=== PATIENT | male | born 1935 | race Caucasian/White ===

== ENCOUNTER 2020-10-24 14:04 | Inpatient (IN) | payer MEDICARE, OTHER, SELFPAY ==
--- NOTE | ~2020-10-24 | XR_ITS ---
EXAMINATION: XR chest 1V portable INDICATION: Hypertension and weakness TECHNIQUE: Portable AP chest at 1844 hours COMPARISON: None available FINDINGS: The lungs are free of acute opacities. There is no pleural effusion or pneumothorax. The ca rdiomediastinal silhouette is normal. IMPRESSION: 1. No acute cardiopulmonary abnormality. Reviewed, dictated and finalized at location A.
--- NOTE | ~2020-10-24 | XR_ITS ---
EXAMINATION: XR barium swallow modified DATE: 10/28/2020 14:55 INDICATION: Cough, possible aspiration pneumonia TECHNIQUE: Modified barium esophagram was attempted by myself to administered fluoroscopy, in conjun ction with speech pathologist. A single fluoroscopic spot image was recorded. The DAP for this proced ure was 1.606 Gycm2. Fluoroscopy exposure time was 2.0 minutes. FINDINGS: Patient was extremely somnolent. The examination was terminated after one attempt at [facility] due to patient's somnolence. IMPRESSION: Incomplete modified barium swallow due to patient's somnolence. Reviewed, dictated and finalized at location A.
--- NOTE | ~2020-10-24 | CT_ITS ---
EXAMINATION: CT brain wo con EXAM DATE: 10/24/2020 16:06 INDICATION: Gait instability, states he normally walk today could not. History of dementia. TECHNIQUE: Spiral CT of the head was performed without contrast. Axial, coronal and sagittal images were reviewed. The dose-length product (DLP) for this examination was 605.33 mGy-cm. The exposure w as tailored according to patient size, and iterative reconstruction (ASIR) was used as additional dos e reduction technique. There is no prior study for comparison. FINDINGS: There is no acute intraparenchymal hemorrhage. No evidence of intraparenchymal brain mass lesion. No evidence of acute infarction. Please note that initial head CT has limited sensitivity f or small or acute infarctions. There is mild periventricular and subcortical hypodensity, nonspecific but probably related to small vessel ischemic disease. There is moderate prominence of the sulci a nd ventricles related to cerebral atrophy. There is intracranial carotid arteriosclerosis. There a re no extra-axial collections. There is no mass effect or midline shift. Patient has had bilateral ocular lens surgery. Soft tissue is unremarkable. Completely opacified left frontal sinus and anter ior ethmoids. IMPRESSION: 1. No acute intracranial findings. 2. Chronic age related findings. 3. Completely opacified left frontal and ethmoid sinuses. Reviewed, dictated and finalized at location B.
--- NOTE | ~2020-10-24 | CT_ITS ---
EXAMINATION: CT LE LT wo con DATE: 10/26/2020 15:04 INDICATION: Left foot and ankle pain and swelling. Nonweightbearing. TECHNIQUE: High resolution computed tomography (CT) of the left foot and ankle was performed without intravenous contrast. Additional sagittal and coronal reconstructions were performed. Automated expos ure control and iterative reconstruction technique were employed. The dose-length product was 507.88 mGy-cm. COMPARISON: None FINDINGS: Bone alignment is normal. No fracture. Is mild polyarticular osteoarthritis involving the left ankle and the majority of the joints in the foot. No ankle joint effusion. There were numerous dystrophic c alcifications along multiple tendons and ligaments including the deltoid ligament, the calcaneal fibu lar, anterior and posterior talofibular and anterior and posterior inferior tibiofibular ligaments an d along the peroneus longus and brevis tendons, the tibialis posterior tendon as well as along the ce ntral component of the plantar aponeurosis. There are small cortical erosions at the deltoid ligament origin at the medial malleolus and at the calcaneal and cuboid footplates of the bifurcate ligament. Additional small lucent lesions seen at the talar side of the mid facet of the subtalar joint, at th e base of the fifth metatarsal and at the head of the first metatarsal which could represent addition al erosions or small degenerative subchondral cysts. There is soft tissue swelling with subcutaneous edema about the distal lower leg and ankle as well as extending over the dorsum of the foot. There is also some soft tissue along with subcutaneous edema at the heel plantar fat pad. No left ankle joint effusion or other abnormal fluid collections. IMPRESSION: 1. Dystrophic calcifications along multiple ligaments and tendons at the left ankle and hindfoot luiz g with small erosions at at the sites of ligamentous insertion at the medial malleolus, anterior proc ess of the calcaneus and adjacent cuboid. This pattern of findings is highly suspicious for gout or o ther crystal deposition disease. 2. 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 Reviewed, dictated and finalized at location A. IMPRESSION: 1. Dystrophic calcifications along multiple ligaments and tendons at the left a nkle and hindfoot along with small erosions at at the sites of ligamentous inse rtion at the medial malleolus, anterior process of the calcaneus and adjacent c uboid. This pattern of findings is highly suspicious for gout or other crystal deposition disease. 2. 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
--- NOTE | ~2020-10-24 | XR_ITS ---
XR ankle LT 2V 10/25/2020 11:29 Indication: Left ankle pain Procedure: 4 views left ankle Comparison: No prior studies for comparison. Findings: No fracture, subluxation or dislocation. Ankle mortise intact. There are loose bodies dista l to the medial malleolus, likely related to degenerative change or remote trauma. Small degenerative calcaneal enthesophytes. Impression: 1: No acute fracture. Reviewed, dictated and finalized at location A. Impression: 1: No acute fracture.
--- NOTE | ~2020-10-24 | XR_ITS ---
EXAMINATION: XR chest 2V DATE: 10/28/2020 14:55 INDICATION: Cough, possible aspiration TECHNIQUE: AP and lateral views of the chest are obtained. COMPARISON: 10/24/2020 FINDINGS: There are small pleural effusions. Airspace opacities are present in the lung bases. There is no pneumothorax. The cardiomediastinal silhouette is normal. There is severe thoracic spondylosis. IMPRESSION: 1. Small pleural effusions. 2. Bibasilar airspace opacities, consistent with atelectasis versus pneumonia. Reviewed, dictated and finalized at location A.
[2020-10-24 14:30] VITALS: BP 121/57; O2SAT 95
[2020-10-24 14:45] VITALS: BP 97/45; PULSE 55; RESP 18; TEMP 36.6; O2SAT 96
[2020-10-24 15:00] VITALS: BP 125/65; O2SAT 95
--- NOTE | 2020-10-24 15:49 | ECG_ITS ---
Measurements Intervals [place] Rate: 55 P: [place]: 0 QRS: -47 QRSD: 94 T: 15 QT: 371 QTc: 355 Interpretive Statements SINUS OR ECTOPIC ATRIAL BRADYCARDIA LEFT ANTERIOR FASCICULAR BLOCK BORDERLINE T WAVE ABNORMALITY- ANTEROLAT/INF LEADS BASELINE ARTIFACT- I, II, III, AVR, AVL, AVF, V1-V2 BORDERLINE ECG Electronically Signed On 10-24-2020 17:03:14 CDT by Yohsi Meraz D.O.
--- NOTE | 2020-10-24 15:53 | ED.GENADULT ---
HPI - General Adult General Chief complaint: Extremity Injury, Lower Stated complaint: L ANKLE ISSUES Time Seen by Provider: 10/24/20 15:19 Source: patient History of Present Illness HPI narrative: Patient is a 85 y/o male brought in for evaluation of weakness and difficulty with walking. Daughter states that patient was shuffling more than usual since yesterday. He was at a memory care center today and he was not able to stand up and walk around noon today. They thought he may have had some difficulty with his left leg. He is usually able to walk without assistance. Patient is poor historian and does not know why he is here. Related Data Home Medications Medication Instructions Recorded Confirmed aspirin [Adult Aspirin EC Low 81 mg PO DAILY 10/24/20 Strength] atorvastatin 40 mg PO DAILY 10/24/20 finasteride 5 mg PO DAILY 10/24/20 linaclotide [Linzess] 290 mcg PO DAILY 10/24/20 metformin 1,000 mg PO BID 10/24/20 metoprolol tartrate 12.5 mg PO DAILY 10/24/20 mirtazapine 7.5 mg PO HS 10/24/20 pantoprazole [Protonix] 40 mg PO QAM 10/24/20 rivaroxaban [Xarelto] 20 mg PO DAILY 10/24/20 thiamine HCl (vitamin B1) 100 mg PO DAILY 10/24/20 topiramate 100 mg PO BID 10/24/20 torsemide 20 mg PO QAM 10/24/20 trazodone 25 mg PO HS 10/24/20 valsartan [Diovan] 80 mg PO DAILY 10/24/20 Allergies Allergy/AdvReac Type Severity Reaction Status Date / Time levetiracetam [From Keppra] Allergy Unknown Verified 10/24/20 15:08 lorazepam [From Ativan] Allergy Unknown Verified 10/24/20 15:08 Penicillins Allergy Unknown Verified 10/24/20 15:08 Sulfa (Sulfonamide Allergy Unknown Verified 10/24/20 15:08 Antibiotics) Review of Systems Review of Systems: ROS unobtainable: Yes unobtainable due to mental status Exam Const: General: no acute distress and well developed Orientation/consciousness: oriented to person and confusion HENMT: Head: normocephalic Ears: external ears normal General nose exam: Normal external nose present Eyes: General: appearance normal, both eyes and all related structures Conjunctivae: conjunctivae normal Neck: Neck: normal visual inspection and full ROM Chest: Chest palpation & inspection: normal inspection of the chest and no tenderness Resp: Effort & Inspection: normal respiratory effort Auscultation: clear to auscultation bilaterally Cardio: Rate: regular rate Rhythm: regular rhythm GI: GI Palp: No abdominal tenderness and Yes Soft to palpation Skin: General skin exam: normal color and turgor normal Wounds: wounds noted (chronically appearing wound over right medial malleolus) Neuro: General: oriented to person and confusion Cognition (Neuro): abnormal cognition Speech: normal speech Motor exam (neuro): 5/5 motor strength present throughout Sensory Exam: normal sensation Extrem: General: normal to inspection, full ROM and edema bilateral Psych: Appearance: grossly normal Mental Status: mental status grossly normal Affect: normal affect Course Consultations Consultation #1: Discussed with Dr. Schneider, who agrees to admit. Date: 10/24/20 Time: 18:41 Vital Signs Vital signs: Vital Signs Blood Pressure 121/57 L 10/24/20 14:30 Pulse Oximetry 95 10/24/20 14:30 Temperature 36.6 C 10/24/20 14:45 Pulse Rate 55 L 10/24/20 14:45 Respiratory Rate 18 10/24/20 14:45 Blood Pressure 125/65 10/24/20 15:00 Pulse Oximetry 95 10/24/20 15:00 Medical Decision Making Vital Signs Vital Signs: Vital Signs Blood Pressure 121/57 L 10/24/20 14:30 Pulse Oximetry 95 10/24/20 14:30 Temperature 36.6 C 10/24/20 14:45 Pulse Rate 55 L 10/24/20 14:45 Respiratory Rate 18 10/24/20 14:45 Blood Pressure 125/65 10/24/20 15:00 Pulse Oximetry 95 10/24/20 15:00 Lab Data Result diagrams: 10/24/20 16:39 10/24/20 16:39 Labs: Lab Results 10/24/20 10/24/20 10/24/20 Range/Units 16:36 16:39 16:39 WBC 7.7 (4.5-10.
[2020-10-24] MEDS: SODIUM CHLORIDE 0.9% IV 1,000 ML 999 ML IV CONT (16:44)
[2020-10-24 16:53] LABS: Basophils Absolute Auto 0.1 K/mm3 (0.0-0.1); Basophils Percent Auto 0.7 % (0.2-1.2); Eosinophils Absolute Auto 0.5 K/mm3 (0-0.3); Eosinophils Percent Auto 6.1 % (0-4.4); Hematocrit 35.7 % (42.0-52.0); Immature Granulocyte Absolute 0.04 K/mm3 (0.00-0.031); Immature Granulocyte Percent A 0.5 % (0-0.5); Lymphocytes Absolute Auto 0.95 K/mm3 (0.9-3.2); Lymphocytes Percent Auto 12.4 % (18.3-44.2); Mean Corpuscular HGB Conc 30.8 g/dl (32-36); Mean Corpuscular Hemoglobin 28.6 pg (26-34); Mean Platelet Volume 9.8 fl (7.4-10.4); Monocytes Absolute Auto 0.8 K/mm3 (0.1-0.6); Monocytes Percent Auto 9.9 % (2.6-8.5); Neutrophils Absolute Auto 5.4 K/mm3 (1.3-6.7); Neutrophils Percent Auto 70.4 % (45.5-73.1); Platelet Count Result 212 k/mm3 (150-375); Red Blood Count 3.84 M/mm3 (4.6-6.20); Red Cell Distribution Width 14.8 % (11.5-14.5); White Blood Count 7.7 K/mm3 (4.5-10.0)
[2020-10-24 16:56] LABS: Add Urine Microscopic? YES; Appearance Urine Clear (Clear); Bilirubin Urine Negative (Negative); Blood Urine Negative (Negative); Color Urine Yellow (Yellow); Glucose Urine UA Negative (Negative); Ketones Urine Negative (Negative); Leukocyte Esterase Ur Negative LEU/UL (Negative); Mucus Urine Rare /lpf; Nitrate Urine Negative (Negative); Protein Urine 1+ mg/dL (Negative); RBC Urine 0-2 /hpf (0-2); Specific Grav Ur 1.021 (1.001-1.035); WBC Urine 0-3 /hpf
[2020-10-24 17:20] LABS: Carbon Dioxide 21 mmol/L (22-30); Estimated Glomerular Filt Rate 41; Glucose 141 mg/dL (65-110)
[2020-10-24 17:26] LABS: Anion Gap 8 mmol/L (8-16); Blood Urea Nitrogen 25 mg/dL (9-20); Calcium 8.8 mg/dL (8.4-10.2); Chloride 117 mmol/L (98-107); Potassium 4.3 mmol/L (3.4-5.0); Sodium 146 mmol/L (137-145)
[2020-10-24 20:09] LABS: Ammonia < 9 umol/L (9-30)
[2020-10-24 20:45] VITALS: BP 125/65; PULSE 62; RESP 20; O2SAT 98
[2020-10-24 21:00] VITALS: BP 153/59; PULSE 71; RESP 18; TEMP 36.8; O2SAT 98; BMI 30.2
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
[2020-10-24] MEDS: HALOPERIDOL LACTATE 5 MG/ML VIAL IM (23:21)
[2020-10-24 23:27] VITALS: PULSE 97
[2020-10-25] VITALS: PULSE 96
--- NOTE | 2020-10-25 00:14 | PM.IMHP ---
H&P: HPI History of Present Illness Date/Time: 10/25/20 00:14 Chief Complaint: Altered mental status Narrative: THIS IS AN 85-YEAR-OLD MALE WITH PAST MEDICAL HISTORY SIGNIFICANT FOR DEMENTIA, TYPE 2 DIABETES MELLITUS, ATRIAL FIBRILLATION, BENIGN PROSTATIC HYPERPLASIA, GERD. MOST OF THE HISTORY HAS BEEN OBTAINED FROM DAUGHTER WHO IS AT BEDSIDE IN THE EMERGENCY ROOM PATIENT JUST RECENTLY STARTED LIVING IN A [facility]ORY [facility]ARE UNIT SHE WAS BROUGHT TO THE EMERGENCY ROOM DUE TO STAFF CONCERNS WITH THE PATIENT ALTERED MENTAL STATUS HE HAS NOT BEEN HIS USUAL HAS NOT BEEN PARTICIPATING IN ANY ACTIVITIES AND HAS BEEN CONFUSED. DAUGHTER RESTART STATES THAT HE WAS RECENTLY STARTED ON MIRTAZAPINE AND THAT COULD HAVE CONTRIBUTED TO IT. PATIENT IS UNABLE TO PROVIDE ANY HISTORY DUE TO HIS UNDERLYING DEMENTIA HE DENIES ANY DISCOMFORT AT THE TIME OF MY VISIT. PRELIMINARY WORKUP WAS SIGNIFICANT FOR SLIGHT ELEVATION OF CREATININE. CHEST X-RAY DID NOT SHOW ANY ACUTE CARDIOPULMONARY FINDINGS. Review of Systems Review of Systems: PATIENT WAS BROACHED AFTER STAFF CONCERNS FROM MEMORY CARE UNIT ARE ASSISTED ROS unobtainable: Yes unobtainable due to medical condition Meds Home Medications and Allergies Home Medications Medication Instructions Recorded Confirmed Type aspirin [Adult Aspirin EC Low 81 mg PO DAILY 10/24/20 10/25/20 History Strength] atorvastatin 40 mg PO DAILY 10/24/20 10/25/20 History finasteride 5 mg PO DAILY 10/24/20 10/25/20 History linaclotide [Linzess] 290 mcg PO DAILY 10/24/20 10/25/20 History metformin 1,000 mg PO BID 10/24/20 10/25/20 History metoprolol tartrate 12.5 mg PO DAILY 10/24/20 10/25/20 History mirtazapine 7.5 mg PO HS 10/24/20 10/25/20 History pantoprazole [Protonix] 40 mg PO QAM 10/24/20 10/25/20 History rivaroxaban [Xarelto] 20 mg PO DAILY 10/24/20 10/25/20 History thiamine HCl (vitamin B1) 100 mg PO DAILY 10/24/20 10/25/20 History topiramate 100 mg PO BID 10/24/20 10/25/20 History torsemide 20 mg PO QAM 10/24/20 10/25/20 History trazodone 25 mg PO HS 07/29/21 07/30/21 History valsartan [Diovan] 80 mg PO DAILY 10/24/20 10/25/20 History Allergies Allergy/AdvReac Type Severity Reaction Status Date / Time levetiracetam [From Keppra] Allergy Unknown Verified 10/24/20 23:06 lorazepam [From Ativan] Allergy Unknown Verified 10/24/20 23:06 Penicillins Allergy Unknown Verified 10/24/20 23:06 Sulfa (Sulfonamide Allergy Unknown Verified 10/24/20 23:06 Antibiotics) Vital Signs Vital Signs - 24 hr 10/24/20 14:30 10/24/20 14:45 10/24/20 15:00 Temperature 97.8 F Pulse Rate 55 L Respiratory Rate 18 Blood Pressure 121/57 L 97/45 L 125/65 Pulse Oximetry 95 96 95 10/24/20 20:45 10/24/20 21:00 Temperature 98.3 F Pulse Rate 62 71 Respiratory Rate 20 18 Blood Pressure 125/65 153/59 H Pulse Oximetry 98 98 Exam Narrative: [facility] Const: General: comfortable, no acute distress, well developed, alert and awake Nutritional Appearance: average body habitus Orientation/consciousness: oriented to person HENMT: Head: normal to inspection, normocephalic and atraumatic Ears: hearing grossly normal bilaterally General nose exam: Normal external nose present Face and sinus: normal facial exam Eyes: General: appearance normal, both eyes and all related structures Alignment and Position: alignment normal Pupils: Equal, round and reactive pupils present EOM: EOMs intact bilaterally Neck: Neck: full ROM, no lymphadenopathy and no JVD Thyroid: thyroid normal Lymphatic: no lymphadenopathy noted Resp: Effort & Inspection: normal respiratory effort and able to speak in complete sentences Auscultation: clear to auscultation bilaterally Cardio: Jugular venous distension: no JVD Rate: regular rate Rhythm: regular rhythm Heart sounds: S1 normal heart sound present and S2 normal heart sound present GI: Inspection: normal to inspection GI Palp: Yes Soft to palpation, No Tenderness to pa
[2020-10-25] MEDS: MORPHINE SULFATE (*CRX) 2 MG/ML INJ 1 MG IV PUSH (00:56)
[2020-10-25] MEDS: traZODone HCL 25 MG TABLET PO ×2 (01:38→20:28)
[2020-10-25] MEDS: OLANZapine 10 MG INJ VIAL IM (01:48)
--- NOTE | 2020-10-25 02:30 | ADMGEN ---
This patient, Ghulam Millan, was admitted to Medical Room [facility] at 2100. Patient/family oriented to hospital policies and general routines including ID bracelet, bed and alarms, visiting hours, pain management, procedures, bathroom and other care routines, personal items, smoking policy, room service/diet, and visiting hours. Information on how to activate the Rapid Response Team has been discussed. Patient/Family are encouraged to report perceived risks to care and to ask questions if they do not understand what they are told or what they should do.
[2020-10-25] MEDS: CLINDAMYCIN 300 MG in DEXTROSE 5% IN WATER 50 ML 104 MG IVPB (03:17)
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
[2020-10-25 06:00] VITALS: BP 138/76; PULSE 97; RESP 18; TEMP 37.1; O2SAT 90
[2020-10-25] MEDS: CLINDAMYCIN 300 MG in DEXTROSE 5% IN WATER 50 ML 50 MG IVPB (09:08)
[2020-10-25 09:10] VITALS: PULSE 84
[2020-10-25] MEDS: ASPIRIN 81 MG ENTERIC TABLET PO (09:10)
[2020-10-25] MEDS: FINASTERIDE 5 MG TABLET PO (09:10)
[2020-10-25] MEDS: METOPROLOL TARTRATE 12.5 MG TABLET PO ×2 (09:10→20:28)
[2020-10-25] MEDS: ATORVASTATIN 40 MG TABLET PO (09:10)
[2020-10-25] MEDS: THIAMINE HCL 100 MG TABLET PO (09:11)
[2020-10-25] MEDS: TOPIRAMATE 100 MG TABLET PO ×2 (09:12→17:31)
[2020-10-25] MEDS: PANTOPRAZOLE 40 MG TABLET PO (09:12)
[2020-10-25 10:36] VITALS: BMI 30.2
[2020-10-25] MEDS: HALOPERIDOL LACTATE 5 MG/ML VIAL IM ×3 (11:47→22:44)
--- NOTE | 2020-10-25 12:10 | PCNSR ---
On 10/25/20, the student, Renetta Moses, provided care and completed [facility] documentation on this patient. I have reviewed the student's documentation and agree with the findings.
[2020-10-25 13:00] VITALS: BP 129/66; PULSE 56; RESP 16; TEMP 36.7; O2SAT 100
[2020-10-25] MEDS: SILVERGEL (ELTA) 45 ML 1 APPLIC TOPICAL (14:58)
[2020-10-25 16:00] VITALS: BMI 11.0
--- NOTE | 2020-10-25 16:42 | PM.IMPN ---
Progress Note: A&P Assessment and Plan (1) Altered mental status: Code(s): R41.82 - Altered mental status, unspecified Status: Acute Assessment and Plan: The patient's daughter is at bedside and tells me that he was sitting up for lunch at his memory care facility yesterday when suddenly he had a change in his mental status along with generalized weakness. The patient normally is walking around without any issues or concerns. He did have a fall approximately 1 week ago when he was turning too fast wall on a tour of the memory care facility. He did not hit his head or injure himself and he is still able to walk without any issues. But prior to arrival with his mental status change, generalized weakness they were unable to get him up and he was unable to walk so he was sent to the emergency room for further evaluation workup. While in the emergency room the patient's daughter states he was very confused and sundowning with his dementia which she has seen before during his hospitalizations. The daughter did say he was complaining of left ankle pain in the ER, but imaging was not performed. Altered mental status could be from dehydration vs orthostatic hypotension vs medication reaction with mirtazapine causing over sedation and generalized weakness. Will hold Mirtazapine BP much improved with IV fluids in the emergency room patient otherwise very confused and agitated. patient is moving all extremities, and does not have any signs of having any type of stroke at this time. Will not proceed with stroke workup currently. Agitation will need PRN Haldol Will continue neuro checks q.4 hours. (2) Left ankle pain: Code(s): M25.572 - Pain in left ankle and joints of left foot Status: Acute Assessment and Plan: patient reporting left ankle pain to his daughter yesterday. On examination he does have tenderness to palpation of his lateral malleolus and proximal forefoot. x-ray was obtained of left ankle which did not show any acute fracture. He did get up with PT earlier and he did not put any weight on his left ankle. I will get a CT of his foot and ankle to rule out acute fracture. Continue monitoring. Pain meds as needed. Ankle wrap ordered to be applied daily. P.r.n. ice. And continue PT/OT. (3) Left leg cellulitis: Code(s): L03.116 - Cellulitis of left lower limb Status: Acute Assessment and Plan: Do not believe he has cellulitis, it is chronic venous status changes and daughter agrees. (4) VALERIA (acute kidney injury): Code(s): N17.9 - Acute kidney failure, unspecified Status: Acute Assessment and Plan: Will check Cr 1.60/25. Will recheck labs in the morning. (5) Weakness: Code(s): R53.1 - Weakness Status: Acute Assessment and Plan: Could be from dementia, vs medications vs sedation from medications. No acute signs of infection at this time. Continue monitoring; PT/OT. Working on SNF placement. (6) Dementia: Code(s): F03.90 - Unspecified dementia without behavioral disturbance Status: Acute Assessment and Plan: Continue home medications. (7) Gait instability: Code(s): R26.81 - Unsteadiness on feet Status: Acute Time Spent With Patient Time with patient: 25 - 35 minutes Subjective Date/time seen: 10/25/20 16:42 Interval history: Date of Service 10/25/20: The patient is confused and agitated, trying to get out of bed and throw water on me. He denies any pain, trouble breathing, but does report pain to his left ankle/foot. Review of Systems Review of Systems: All systems reviewed & are unremarkabl
[2020-10-25 20:23] VITALS: BP 128/95; PULSE 72; RESP 22; TEMP 36.9; O2SAT 91
[2020-10-25 20:28] VITALS: PULSE 72
[2020-10-26 04:57] LABS: Hematocrit 36.2 % (42.0-52.0); Hemoglobin 11.4 g/dL (14.0-18.0); Mean Corpuscular HGB Conc 31.5 g/dl (32-36); Mean Corpuscular Hemoglobin 28.9 pg (26-34); Mean Corpuscular Volume 91.9 fl (80-100); Mean Platelet Volume 9.9 fl (7.4-10.4); Platelet Count Result 221 k/mm3 (150-375); Red Blood Count 3.94 M/mm3 (4.6-6.20); Red Cell Distribution Width 14.5 % (11.5-14.5); White Blood Count 13.5 K/mm3 (4.5-10.0)
[2020-10-26 05:13] LABS: Anion Gap 13 mmol/L (8-16); Blood Urea Nitrogen 23 mg/dL (9-20); Calcium 8.9 mg/dL (8.4-10.2); Carbon Dioxide 15 mmol/L (22-30); Chloride 116 mmol/L (98-107); Estimated CRCL calculation 38 ml/min; Estimated Glomerular Filt Rate 41; Glucose 143 mg/dL (65-110); Potassium 3.7 mmol/L (3.4-5.0); Sodium 144 mmol/L (137-145)
[2020-10-26 05:22] VITALS: BP 139/65; PULSE 88; RESP 22; TEMP 36.6; O2SAT 92
--- NOTE | 2020-10-26 09:21 | PM.IMPN ---
Progress Note: A&P Assessment and Plan (1) Altered mental status: Code(s): R41.82 - Altered mental status, unspecified Status: Acute Assessment and Plan: Holdd Mirtazapine Still confused No signs stroke,no workup currently PRN Haldol Neuro checks q 4 hr (2) Left ankle pain: Code(s): M25.572 - Pain in left ankle and joints of left foot Status: Acute Assessment and Plan: Pt reporting left ankle pain to his daughter yesterday x-ray was obtained of left ankle which did not show any acute fracture. Unable to bear weight on left ankle with PT yesterdaye CT of his foot and ankle to rule out acute fracture Pain meds as needed. Ankle wrap ordered to be applied daily Ice prn Continue PT/OT (3) Left leg cellulitis: Code(s): L03.116 - Cellulitis of left lower limb Status: Acute Assessment and Plan: Unlikely cellulitis Chronic venous status changes and daughter agrees (4) VALERIA (acute kidney injury): Code(s): N17.9 - Acute kidney failure, unspecified Status: Acute Assessment and Plan: Cr 1.60 today Gentle IVF Repeat Monitor (5) Weakness: Code(s): R53.1 - Weakness Status: Acute Assessment and Plan: Could be from dementia, vs medications vs sedation from medications No acute signs of infection at this time. PT/OT SNF placement at d/c (6) Dementia: Code(s): F03.90 - Unspecified dementia without behavioral disturbance Status: Acute Assessment and Plan: Continue home medications (7) Gait instability: Code(s): R26.81 - Unsteadiness on feet Status: Acute Assessment and Plan: PT/OT CT of left ankle pending Subjective Date/time seen: 10/26/20 09:21 Interval history: Pt seen and evaluated; arousable to voice; confused Review of Systems Review of Systems: ROS unobtainable: Yes unobtainable due to mental status Exam Const: General: no acute distress, alert and awake Orientation/consciousness: patient oriented x3 HENMT: Head: normocephalic and atraumatic Ears: hearing grossly normal bilaterally and external ears normal Face and sinus: face symmetric Mouth: Yes Normal oral and palatal mucosa present Eyes: Pupils: Equal, round and reactive pupils present EOM: EOMs intact bilaterally Neck: Neck: full ROM, trachea midline and no JVD Thyroid: thyroid normal Chest: Chest palpation & inspection: normal inspection of the chest Resp: Effort & Inspection: normal respiratory effort Auscultation: clear to auscultation bilaterally Cardio: Jugular venous distension: no JVD Rate: regular rate Rhythm: regular rhythm Heart sounds: S1 normal heart sound present and S2 normal heart sound present GI: Inspection: normal to inspection GI Palp: Yes Soft to palpation Percussion: Yes normal to percussion Auscultation: normal bowel sounds : General: Yes no CVA tenderness Back/Spine/Pelvis: Back: no CVA tenderness Skin: General skin exam: normal color Rashes: no rashes Neuro: General: oriented to person Objective Data Vital Signs Vital Signs: Vital Signs - 24 hr 10/25/20 13:00 10/25/20 20:23 10/25/20 20:28 Temperature 36.7 C 36.9 C Pulse Rate 56 L 72 72 Respiratory Rate 16 22 H Blood Pressure 129/66 128/95 H Pulse Oximetry 100 91 10/26/20 05:22 Temperature 36.6 C Pulse Rate 88 Respiratory Rate 22 H Blood Pressure 139/65 Pulse Oximetry 92 Intake/Output Intake/Output: Intake & Output 10/23/20 10/24/20 10/25/20 10/26/20 23:59 23:59 23:59 23:59 Intake Total 1000 677 0 Output Total 750 Balance 1000 -73 0 Meds/Results Medications: Active Medica
[2020-10-26 09:41] VITALS: PULSE 84
[2020-10-26] MEDS: METOPROLOL TARTRATE 12.5 MG TABLET PO ×2 (09:41→20:20)
[2020-10-26] MEDS: TOPIRAMATE 100 MG TABLET PO ×2 (09:41→16:53)
[2020-10-26 09:42] VITALS: RESP 20; O2SAT 93
[2020-10-26] MEDS: THIAMINE HCL 100 MG TABLET PO (09:42)
[2020-10-26] MEDS: FINASTERIDE 5 MG TABLET PO (09:42)
[2020-10-26] MEDS: SILVERGEL (ELTA) 45 ML 1 APPLIC TOPICAL (09:42)
[2020-10-26] MEDS: PANTOPRAZOLE 40 MG TABLET PO (09:42)
[2020-10-26] MEDS: ATORVASTATIN 40 MG TABLET PO (09:42)
[2020-10-26 12:00] VITALS: BP 150/69; PULSE 78; RESP 20; TEMP 36.6; O2SAT 96; BMI 11.0
[2020-10-26] MEDS: SODIUM CHLORIDE 0.9% IV 1,000 ML 50 ML IV CONT (12:14)
[2020-10-26] MEDS: ASPIRIN 81 MG ENTERIC TABLET PO (13:21)
[2020-10-26] MEDS: HALOPERIDOL LACTATE 5 MG/ML VIAL IM (18:07)
[2020-10-26 20:20] VITALS: PULSE 88
[2020-10-26] MEDS: traZODone HCL 25 MG TABLET PO (20:20)
[2020-10-26 21:07] VITALS: BP 155/48; PULSE 88; RESP 22; TEMP 36.4; O2SAT 95
[2020-10-27] MEDS: HALOPERIDOL LACTATE 5 MG/ML VIAL IM ×3 (00:25→16:15)
[2020-10-27 04:59] VITALS: BP 141/73; PULSE 85; RESP 20; TEMP 36.4; O2SAT 100
[2020-10-27 05:30] LABS: Basophils Percent Auto 0.3 % (0.2-1.2); Eosinophils Percent Auto 0.2 % (0-4.4); Hematocrit 38.2 % (42.0-52.0); Hemoglobin 11.8 g/dL (14.0-18.0); Immature Granulocyte Absolute 0.07 K/mm3 (0.00-0.031); Immature Granulocyte Percent A 0.5 % (0-0.5); Lymphocytes Absolute Auto 0.59 K/mm3 (0.9-3.2); Lymphocytes Percent Auto 4.3 % (18.3-44.2); Mean Corpuscular HGB Conc 30.9 g/dl (32-36); Mean Corpuscular Hemoglobin 28.9 pg (26-34); Mean Corpuscular Volume 93.6 fl (80-100); Mean Platelet Volume 9.9 fl (7.4-10.4); Monocytes Absolute Auto 1.1 K/mm3 (0.1-0.6); Neutrophils Percent Auto 86.7 % (45.5-73.1); Platelet Count Result 209 k/mm3 (150-375); Red Blood Count 4.08 M/mm3 (4.6-6.20); Red Cell Distribution Width 14.6 % (11.5-14.5); White Blood Count 13.8 K/mm3 (4.5-10.0)
[2020-10-27 05:42] LABS: Anion Gap 14 mmol/L (8-16); Blood Urea Nitrogen 22 mg/dL (9-20); Calcium 9.1 mg/dL (8.4-10.2); Carbon Dioxide 15 mmol/L (22-30); Chloride 117 mmol/L (98-107); Estimated CRCL calculation 43 ml/min; Estimated Glomerular Filt Rate 48; Glucose 136 mg/dL (65-110); Sodium 146 mmol/L (137-145)
[2020-10-27] MEDS: PANTOPRAZOLE 40 MG TABLET PO (09:16)
[2020-10-27] MEDS: ASPIRIN 81 MG ENTERIC TABLET PO (09:16)
[2020-10-27] MEDS: ATORVASTATIN 40 MG TABLET PO (09:16)
[2020-10-27 09:17] VITALS: PULSE 84; RESP 20; O2SAT 98
[2020-10-27] MEDS: METOPROLOL TARTRATE 12.5 MG TABLET PO ×2 (09:17→21:39)
[2020-10-27] MEDS: TOPIRAMATE 100 MG TABLET PO ×2 (09:17→16:17)
[2020-10-27] MEDS: FINASTERIDE 5 MG TABLET PO (09:17)
[2020-10-27] MEDS: THIAMINE HCL 100 MG TABLET PO (09:17)
[2020-10-27] MEDS: SILVERGEL (ELTA) 45 ML 1 APPLIC TOPICAL (09:17)
--- NOTE | 2020-10-27 11:19 | PM.IMPN ---
Progress Note: A&P Assessment and Plan (1) Altered mental status: Code(s): R41.82 - Altered mental status, unspecified Status: Acute Assessment and Plan: Holdd Mirtazapine Still confused No signs stroke,no workup currently PRN Haldol Neuro checks q 4 hr (2) Left ankle pain: Code(s): M25.572 - Pain in left ankle and joints of left foot Status: Acute Assessment and Plan: Pt reporting left ankle pain to his daughter yesterday x-ray was obtained of left ankle which did not show any acute fracture. 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 Ankle wrap ordered to be applied daily Ice prn Continue PT/OT Will start colchicine (3) Left leg cellulitis: Code(s): L03.116 - Cellulitis of left lower limb Status: Acute Assessment and Plan: Unlikely cellulitis Chronic venous status changes and daughter agrees (4) VALERIA (acute kidney injury): Code(s): N17.9 - Acute kidney failure, unspecified Status: Acute Assessment and Plan: Cr 1.60-->1.4 today Gentle IVF Repeat Monitor (5) Weakness: Code(s): R53.1 - Weakness Status: Acute Assessment and Plan: Could be from dementia, vs medications vs sedation from medications No acute signs of infection at this time. PT/OT SNF placement at d/c (6) Dementia: Code(s): F03.90 - Unspecified dementia without behavioral disturbance Status: Acute Assessment and Plan: Continue home medications (7) Gait instability: Code(s): R26.81 - Unsteadiness on feet Status: Acute Assessment and Plan: PT/OT CT of left ankle pending Subjective Date/time seen: 10/27/20 11:19 Interval history: Pt seen and evaluated; arousable to voice; agitated this morning Review of Systems Review of Systems: ROS unobtainable: Yes unobtainable due to mental status Exam Const: General: no acute distress, alert and awake Orientation/consciousness: oriented to person HENMT: Head: normocephalic and atraumatic Ears: hearing grossly normal bilaterally and external ears normal Face and sinus: face symmetric Mouth: Yes Normal oral and palatal mucosa present Eyes: Pupils: Equal, round and reactive pupils present EOM: EOMs intact bilaterally Neck: Neck: full ROM, trachea midline and no JVD Thyroid: thyroid normal Chest: Chest palpation & inspection: normal inspection of the chest Resp: Effort & Inspection: normal respiratory effort Auscultation: clear to auscultation bilaterally Cardio: Jugular venous distension: no JVD Rate: regular rate Rhythm: regular rhythm Heart sounds: S1 normal heart sound present and S2 normal heart sound present GI: Inspection: normal to inspection Auscultation: normal bowel sounds : General: Yes no CVA tenderness Back/Spine/Pelvis: Back: no CVA tenderness Skin: General skin exam: normal color Rashes: no rashes Trauma: abrasion Other: left ankle Neuro: General: oriented to person Cranial nerves: Yes Equal, round and reactive pupils present Objective Data Vital Signs Vital Signs: Vital Signs - 24 hr 10/26/20 12:00 10/26/20 20:20 10/26/20 21:07 Temperature 36.6 C 36.4 C L Pulse Rate 78 88 88 Respiratory Rate 20 22 H Blood Pressure 150/69 H 155/48 H Pulse Oximetry 96 95 10/27/20 04:59 10/27/20 09:17 Temperature 36.4 C Pulse Rate 85 84 Respiratory Rate 20 20 Blood Pressure 141/73 H Pulse Oximetry 100 98 Intake/Output Intake/Output: Intake
[2020-10-27 12:00] VITALS: BP 157/85; PULSE 85; RESP 20; TEMP 36.4; O2SAT 95
[2020-10-27] MEDS: COLCHICINE 0.3 MG TABLET PO (13:24)
[2020-10-27] MEDS: ACETAMINOPHEN 325 MG TABLET 650 MG PO (15:55)
[2020-10-27 20:00] VITALS: PULSE 74; RESP 20; O2SAT 95
[2020-10-27 21:39] VITALS: PULSE 74
[2020-10-27] MEDS: traZODone HCL 25 MG TABLET PO (21:39)
[2020-10-27 22:00] VITALS: BP 156/99; PULSE 100; RESP 16; TEMP 36.4; O2SAT 93
[2020-10-28] MEDS: HALOPERIDOL LACTATE 5 MG/ML VIAL IM (00:26)
[2020-10-28 06:00] VITALS: BP 136/86; PULSE 74; RESP 16; TEMP 36.7; O2SAT 94
[2020-10-28 09:41] VITALS: PULSE 80
[2020-10-28] MEDS: METOPROLOL TARTRATE 12.5 MG TABLET PO ×2 (09:41→20:44)
[2020-10-28] MEDS: SILVERGEL (ELTA) 45 ML 1 APPLIC TOPICAL (09:41)
[2020-10-28] MEDS: ASPIRIN 81 MG ENTERIC TABLET PO (09:41)
[2020-10-28] MEDS: COLCHICINE 0.3 MG TABLET PO (09:41)
[2020-10-28] MEDS: SODIUM BICARBONATE TAB 650 MG TABLET PO (09:41)
[2020-10-28] MEDS: THIAMINE HCL 100 MG TABLET PO (09:41)
[2020-10-28] MEDS: PANTOPRAZOLE 40 MG TABLET PO (09:41)
[2020-10-28] MEDS: FINASTERIDE 5 MG TABLET PO (09:41)
[2020-10-28] MEDS: ATORVASTATIN 40 MG TABLET PO (09:41)
[2020-10-28] MEDS: TOPIRAMATE 100 MG TABLET PO (09:41)
[2020-10-28 11:30] VITALS: BMI 11.0
--- NOTE | 2020-10-28 11:30 | P.PNIM_ITS ---
Progress Note: A&P Assessment and Plan (1) Altered mental status: Code(s): R41.82 - Altered mental status, unspecified Status: Acute Assessment and Plan: Acute change day of presentation. He is reportedly oriented to self still(his baseline) but more confused and drowsy per family report. He is combative. * Initially concerns for sedating effects of medication. Mirtazapine on hold. * Head CT with no acute findings * Likely overly sedated from Haldol, causing daytime drowsiness and nighttime confusion/combativeness. * Will make attempts to limit use of haldol and other sedating medications. He may benefit from scheduled seroquel at bedtime, however will await results of swallow study before making changes * Daughter reports he does not tolerate ativan and has paradoxical effect causing increased agitation (2) Left ankle pain: Code(s): M25.572 - Pain in left ankle and joints of left foot Status: Acute Assessment and Plan: Reported left ankle pain to daughter and was reportedly exquisitely tender on exam. * Daughter notes that he did have a fall and thought perhaps he injured the ankle. X-ray and CT with no evidence of fracture * Ankle CT highly suspicious for gout. continue colchicine. Check uric acid level * supportive care to include Ronak wrap, ice, heat, and analgesics as needed * continue PT/OT (3) VALERIA (acute kidney injury): Code(s): N17.9 - Acute kidney failure, unspecified Status: Acute Assessment and Plan: creatinine 1.6 at presentation. his baseline is unknown * creatinine improved to 1.4 with gentle IV fluid rehydration, suggesting prerenal etiology * repeat BMP today to monitor renal function * consider renal ultrasound if no further improvement * reviewed outside medical records with no recent labs done to establish baseline creatinine (4) Weakness: Code(s): R53.1 - Weakness Status: Acute Assessment and Plan: generalized weakness likely multifactorial related to dementia, sedation from medications, and physical deconditioning * continue PT/OT * check TSH, B12, and folic acid levels * planning for SNF placement (5) Dementia: Code(s): F03.90 - Unspecified dementia without behavioral disturbance Status: Acute Assessment and Plan: typically oriented to self only. * Recently moved in to memory care facility * established with memory progressive care manager and recently started on mirtazapine; currently on hold (6) Dysphagia: Code(s): R13.10 - Dysphagia, unspecified Status: Acute Assessment and Plan: sounds to be ongoing issue. noted to have some difficulty with swallowing liquids and with his pills * Course lung sounds, concerning for aspiration. Will obtain CXR * MBS ordered, will await ST recommendations Subjective Date/time seen: 10/28/20 11:30 Interval history: Date of service: 10/28/2020 Ghulam Millan is an 85-year-old male with a history of dementia, type 2 diabetes mellitus, atrial fibrillation on chronic anticoagulation, BPH, and GERD who is seen in follow-up for altered mental status. He is sleeping during my encounter and no attempts are made to awake the patient given his recent combativeness when awoken. per patient's daughter and patient sitter, he does not like to be touched and often gets agitated when he is moved or needs to be cleaned up. I had a long conversation with his daughter when she was able to provide me a lot of his medical history
--- NOTE | 2020-10-28 11:30 | PM.IMPN ---
Progress Note: A&P Assessment and Plan (1) Altered mental status: Code(s): R41.82 - Altered mental status, unspecified Status: Acute Assessment and Plan: Acute change day of presentation. He is reportedly oriented to self still(his baseline) but more confused and drowsy per family report. He is combative. Initially concerns for sedating effects of medication. Mirtazapine on hold. Head CT with no acute findings Likely overly sedated from Haldol, causing daytime drowsiness and nighttime confusion/combativeness. Will make attempts to limit use of haldol and other sedating medications. He may benefit from scheduled seroquel at bedtime, however will await results of swallow study before making changes Daughter reports he does not tolerate ativan and has paradoxical effect causing increased agitation (2) Left ankle pain: Code(s): M25.572 - Pain in left ankle and joints of left foot Status: Acute Assessment and Plan: Reported left ankle pain to daughter and was reportedly exquisitely tender on exam. Daughter notes that he did have a fall and thought perhaps he injured the ankle. X-ray and CT with no evidence of fracture Ankle CT highly suspicious for gout. continue colchicine. Check uric acid level supportive care to include Ronak wrap, ice, heat, and analgesics as needed continue PT/OT (3) VALERIA (acute kidney injury): Code(s): N17.9 - Acute kidney failure, unspecified Status: Acute Assessment and Plan: creatinine 1.6 at presentation. his baseline is unknown creatinine improved to 1.4 with gentle IV fluid rehydration, suggesting prerenal etiology repeat BMP today to monitor renal function consider renal ultrasound if no further improvement reviewed outside medical records with no recent labs done to establish baseline creatinine (4) Weakness: Code(s): R53.1 - Weakness Status: Acute Assessment and Plan: generalized weakness likely multifactorial related to dementia, sedation from medications, and physical deconditioning continue PT/OT check TSH, B12, and folic acid levels planning for SNF placement (5) Dementia: Code(s): F03.90 - Unspecified dementia without behavioral disturbance Status: Acute Assessment and Plan: typically oriented to self only. Recently moved in to memory care facility established with memory ocular care aide and recently started on mirtazapine; currently on hold (6) Dysphagia: Code(s): R13.10 - Dysphagia, unspecified Status: Acute Assessment and Plan: sounds to be ongoing issue. noted to have some difficulty with swallowing liquids and with his pills Course lung sounds, concerning for aspiration. Will obtain CXR MBS ordered, will await ST recommendations Subjective Date/time seen: 10/28/20 11:30 Interval history: Date of service: 10/28/2020 Ghulam Millan is an 85-year-old male with a history of dementia, type 2 diabetes mellitus, atrial fibrillation on chronic anticoagulation, BPH, and GERD who is seen in follow-up for altered mental status. He is sleeping during my encounter and no attempts are made to awake the patient given his recent combativeness when awoken. per patient's daughter and patient sitter, he does not like to be touched and often gets agitated when he is moved or needs to be cleaned up. I had a long conversation with his daughter when she was able to provide me a lot of his medical history. she indicates that he has been having difficulty swallowing for some time. often seems to cough with liquids. She also notes that he has been less responsive over the past few days it is more confused than normal. Typically, he is oriented to self and can occasionally name his loved ones. Spoke with RN who notes that He was oriented to self this morning when he woke up and was able to state what foods he wanted from his tray.
[2020-10-28 13:22] LABS: Uric Acid 6.2 mg/dL (3.5-8.5)
[2020-10-28 13:38] LABS: Anion Gap 13 mmol/L (8-16); Blood Urea Nitrogen 32 mg/dL (9-20); Calcium 9.2 mg/dL (8.4-10.2); Carbon Dioxide 17 mmol/L (22-30); Chloride 116 mmol/L (98-107); Estimated CRCL calculation 38 ml/min; Estimated Glomerular Filt Rate 41; Glucose 189 mg/dL (65-110); Potassium 3.7 mmol/L (3.4-5.0); Sodium 146 mmol/L (137-145)
--- NOTE | 2020-10-28 14:53 | PCSTNOTE ---
Please refer to the Modified Barium Swallow Evaluation in the EMR.
[2020-10-28 15:00] VITALS: BP 108/59; PULSE 94; RESP 18; TEMP 36.8; O2SAT 95
[2020-10-28 16:14] LABS: Thyroid Stimulating Hormone Reflex 0.387 uIU/mL (0.465-4.68)
[2020-10-28] MEDS: SODIUM CHLORIDE 0.9% IV 1,000 ML 95 ML IV CONT (16:49)
[2020-10-28 16:58] LABS: Free T4 Free Thyroxine Reflex 1.61 ng/dL (0.78-2.19)
[2020-10-28 18:30] LABS: Total Triiodothyronine (T3) 0.64 NG/ML (0.97-1.69)
[2020-10-28 20:00] VITALS: PULSE 75; RESP 18; O2SAT 95
[2020-10-28 20:10] LABS: Folic Acid 9.4 ng/mL (2.76->20)
[2020-10-28 20:44] VITALS: PULSE 75
[2020-10-28 22:00] VITALS: BP 149/79; PULSE 56; RESP 22; TEMP 36.3; O2SAT 100
[2020-10-29 06:00] VITALS: BP 148/97; PULSE 90; RESP 20; TEMP 36.4; O2SAT 99
[2020-10-29 06:00] LABS: Hematocrit 35.8 % (42.0-52.0); Hemoglobin 11.5 g/dL (14.0-18.0); Mean Corpuscular HGB Conc 32.1 g/dl (32-36); Mean Corpuscular Volume 90.4 fl (80-100); Mean Platelet Volume 9.6 fl (7.4-10.4); Platelet Count Result 253 k/mm3 (150-375); Red Blood Count 3.96 M/mm3 (4.6-6.20); Red Cell Distribution Width 14.6 % (11.5-14.5); White Blood Count 11.5 K/mm3 (4.5-10.0)
[2020-10-29 06:16] LABS: Anion Gap 10 mmol/L (8-16); Blood Urea Nitrogen 33 mg/dL (9-20); Calcium 8.9 mg/dL (8.4-10.2); Carbon Dioxide 19 mmol/L (22-30); Chloride 118 mmol/L (98-107); Estimated CRCL calculation 40 ml/min; Estimated Glomerular Filt Rate 45; Glucose 147 mg/dL (65-110); Potassium 3.4 mmol/L (3.4-5.0); Sodium 147 mmol/L (137-145)
[2020-10-29] MEDS: SODIUM CHLORIDE 0.9% IV 1,000 ML 95 ML IV CONT (08:57)
[2020-10-29] MEDS: PANTOPRAZOLE SODIUM IV 40 MG VIAL IV PUSH (08:58)
[2020-10-29] MEDS: SILVERGEL (ELTA) 45 ML 1 APPLIC TOPICAL (09:11)
[2020-10-29] MEDS: CYANOCOBALAMIN INJ 1,000 MCG/ML VIAL 1000 MCG IM (10:42)
[2020-10-29 12:13] LABS: Sodium 149 mmol/L (137-145)
[2020-10-29 14:35] VITALS: BP 152/80; PULSE 93; RESP 20; TEMP 36.3; O2SAT 93
--- NOTE | 2020-10-29 15:29 | P.PNIM_ITS ---
Progress Note: A&P Assessment and Plan (1) Altered mental status: Code(s): R41.82 - Altered mental status, unspecified Status: Acute Assessment and Plan: Acute change day of presentation. He was noted to be more confused and drowsy. * Initially concerns for sedating effects of medication therefore mirtazapine on hold. * Head CT with no acute findings * Likely overly sedated from Haldol, causing daytime drowsiness and nighttime confusion/combativeness. Haldol discontinued * May be overall progression of his dementia. * Continue to monitor mental status (2) Aspiration pneumonia: Code(s): J69.0 - Pneumonitis due to inhalation of food and vomit Status: Acute Assessment and Plan: CXR showed bibasilar airspace opacities consistent with pneumonia * concern for aspiration given his dysphagia * continue with Rocephin, azithromycin. Add Flagyl * improved leukocytosis. He remains afebrile. * aspiration precautions (3) Dysphagia: Code(s): R13.10 - Dysphagia, unspecified Status: Acute Assessment and Plan: Sounds to be ongoing issue. noted to have some difficulty with swallowing liquids and with his pills * Bedside swallow study and MBS performed 10/28/2020. he was somnolent during exam and recommended that MBS be terminated. ST recommendations for NPO diet at this time. * Continue gentle IV fluids * Discussion with family regarding goals of care. Daughter would like to wait see if he perks up with antibiotics and may be able to repeat MBS. Will re- evaluate tomorrow. Will need to consider next steps including feeding tube vs hospice care. Discussed with patient's daughter. * p.o. medications have been switched to IV (4) Left ankle pain: Code(s): M25.572 - Pain in left ankle and joints of left foot Status: Acute Assessment and Plan: Reported left ankle pain to daughter prior to admission and was reportedly tender on exam. * Daughter notes that he did have a fall and thought perhaps he injured the ankle. X-ray and CT with no evidence of fracture * Ankle CT highly suspicious for gout and he was started on colchicine. Uric acid level is within normal limits. He no longer is exhibiting any signs of pain and is NPO, therefore colchicine has been discontinued and will stop treatment for gout. * Supportive care to include Ronak wrap, ice, heat, and analgesics as needed (5) VALERIA (acute kidney injury): Code(s): N17.9 - Acute kidney failure, unspecified Status: Acute Assessment and Plan: Creatinine 1.6 at presentation. his baseline is unknown * creatinine is 1.5 today. * reviewed outside medical records with no recent labs done to establish baseline creatinine. He may be at his baseline * consider renal ultrasound if worsening renal function (6) Weakness: Code(s): R53.1 - Weakness Status: Acute Assessment and Plan: generalized weakness likely multifactorial related to dementia, sedation from medications, and physical deconditioning * continue PT/OT * planning for SNF placement (7) Dementia: Code(s): F03.90 - Unspecified dementia without behavioral disturbance Status: Acute Assessment and Plan: typically oriented to self only. * Recently moved in to memory care facility * established with memory care advocate and recently started on mirtazapine; currently on hold (8) Hypernatremia: Code(s): E87.0 - Hyperosmolality and hy
--- NOTE | 2020-10-29 15:29 | PM.IMPN ---
Progress Note: A&P Assessment and Plan (1) Altered mental status: Code(s): R41.82 - Altered mental status, unspecified Status: Acute Assessment and Plan: Acute change day of presentation. He was noted to be more confused and drowsy. Initially concerns for sedating effects of medication therefore mirtazapine on hold. Head CT with no acute findings Likely overly sedated from Haldol, causing daytime drowsiness and nighttime confusion/combativeness. Haldol discontinued May be overall progression of his dementia. Continue to monitor mental status (2) Aspiration pneumonia: Code(s): J69.0 - Pneumonitis due to inhalation of food and vomit Status: Acute Assessment and Plan: CXR showed bibasilar airspace opacities consistent with pneumonia concern for aspiration given his dysphagia continue with Rocephin, azithromycin. Add Flagyl improved leukocytosis. He remains afebrile. aspiration precautions (3) Dysphagia: Code(s): R13.10 - Dysphagia, unspecified Status: Acute Assessment and Plan: Sounds to be ongoing issue. noted to have some difficulty with swallowing liquids and with his pills Bedside swallow study and MBS performed 10/28/2020. he was somnolent during exam and recommended that MBS be terminated. ST recommendations for NPO diet at this time. Continue gentle IV fluids Discussion with family regarding goals of care. Daughter would like to wait see if he perks up with antibiotics and may be able to repeat MBS. Will re-evaluate tomorrow. Will need to consider next steps including feeding tube vs hospice care. Discussed with patient's daughter. p.o. medications have been switched to IV (4) Left ankle pain: Code(s): M25.572 - Pain in left ankle and joints of left foot Status: Acute Assessment and Plan: Reported left ankle pain to daughter prior to admission and was reportedly tender on exam. Daughter notes that he did have a fall and thought perhaps he injured the ankle. X-ray and CT with no evidence of fracture Ankle CT highly suspicious for gout and he was started on colchicine. Uric acid level is within normal limits. He no longer is exhibiting any signs of pain and is NPO, therefore colchicine has been discontinued and will stop treatment for gout. Supportive care to include Ronak wrap, ice, heat, and analgesics as needed (5) VALERIA (acute kidney injury): Code(s): N17.9 - Acute kidney failure, unspecified Status: Acute Assessment and Plan: Creatinine 1.6 at presentation. his baseline is unknown creatinine is 1.5 today. reviewed outside medical records with no recent labs done to establish baseline creatinine. He may be at his baseline consider renal ultrasound if worsening renal function (6) Weakness: Code(s): R53.1 - Weakness Status: Acute Assessment and Plan: generalized weakness likely multifactorial related to dementia, sedation from medications, and physical deconditioning continue PT/OT planning for SNF placement (7) Dementia: Code(s): F03.90 - Unspecified dementia without behavioral disturbance Status: Acute Assessment and Plan: typically oriented to self only. Recently moved in to memory care facility established with memory plant health care technician and recently started on mirtazapine; currently on hold (8) Hypernatremia: Code(s): E87.0 - Hyperosmolality and hypernatremia Status: Acute Assessment and Plan: sodium slightly elevated up to 149 discontinue IV normal saline begin D5 0.45NS recheck sodium this evening monitor daily BMP Additional Plan Low B12; Administer IM B12 1000 mcg Subjective Date/time seen: 10/29/20 15:29 Interval history: Date of service: 10/28/2020 Ghulam Monsalvencer is an 85-year-old male with a history of dementia, type 2 diabetes mellitus, atrial fibri
[2020-10-29] MEDS: DEXTROSE 5%/0.45% SOD CHL 1,000 ML 90 ML IV CONT (15:51)
[2020-10-29] MEDS: metroNIDAZOLE 500 MG/ISO 100ML 500 MG/100 ML BAG 100 MG IVPB (18:30)
[2020-10-29 20:00] VITALS: BP 145/86; PULSE 65; RESP 20; TEMP 36.2; O2SAT 95
[2020-10-29 20:43] LABS: Sodium 147 mmol/L (137-145)
[2020-10-30] MEDS: metroNIDAZOLE 500 MG/ISO 100ML 500 MG/100 ML BAG 100 MG IVPB ×3 (01:30→18:03)
[2020-10-30 05:38] LABS: Hematocrit 37.1 % (42.0-52.0); Mean Corpuscular HGB Conc 32.3 g/dl (32-36); Mean Corpuscular Hemoglobin 29.1 pg (26-34); Mean Platelet Volume 9.8 fl (7.4-10.4); Platelet Count Result 267 k/mm3 (150-375); Red Blood Count 4.12 M/mm3 (4.6-6.20); Red Cell Distribution Width 14.6 % (11.5-14.5); White Blood Count 9.8 K/mm3 (4.5-10.0)
[2020-10-30 05:53] LABS: Anion Gap 10 mmol/L (8-16); Blood Urea Nitrogen 28 mg/dL (9-20); Calcium 8.7 mg/dL (8.4-10.2); Carbon Dioxide 16 mmol/L (22-30); Chloride 117 mmol/L (98-107); Estimated CRCL calculation 46 ml/min; Estimated Glomerular Filt Rate 53; Glucose 163 mg/dL (65-110); Potassium 3.3 mmol/L (3.4-5.0); Sodium 143 mmol/L (137-145)
[2020-10-30 06:00] VITALS: BP 144/71; PULSE 94; RESP 20; TEMP 35.9; O2SAT 97
[2020-10-30] MEDS: PANTOPRAZOLE SODIUM IV 40 MG VIAL IV PUSH (08:05)
[2020-10-30] MEDS: SILVERGEL (ELTA) 45 ML 1 APPLIC TOPICAL (08:06)
[2020-10-30] MEDS: SODIUM BICARBONATE 8.4% 100 MEQ in DEXTROSE 5% 1,000 ML 1,000 ML IV CONT (09:51)
[2020-10-30 13:41] VITALS: BP 149/67; PULSE 52; RESP 22; TEMP 35.6; O2SAT 93
--- NOTE | 2020-10-30 14:42 | PCNFU ---
Nutrition Follow-Up Complete: Unintentional weight loss related to weakness as evidence by 14 pounds in 3 weeks reported by patient, and an MST score of 4. Goal: Meet estimated nutritional needs. Patient has limited progress on goal. We will continue current goal. Pt current nutrition is NPO. Last recorded weight is 98.1 kg, no new weight to report. Bowel Motility:No reported BM noted. Labs Reviewed: Glu 163,BUN 28,GFR 53,K 3.3, Hct 37.1,Hgb 12.0 Meds Noted: Rocephin,Proscar,Flagyl, Protonix, Sodium Bicarbonate. Additional Notes: Nutrition follow up. Patient remains NPO. Spoke with Carm[facility] Hospitalist today regarding nutritional status. She plans to speak with the family regarding plan of care. Skin: Venous Stasis ankle. RD will continue to monitor. Monitoring: Follow up in 3 days.
--- NOTE | 2020-10-30 15:43 | PCPTNOTE ---
Attempted to see patient for PT, however per RN patient is not appropriate for therapy at this time.
--- NOTE | 2020-10-30 16:48 | P.PNIM_ITS ---
Progress Note: A&P Assessment and Plan (1) Dementia: Code(s): F03.90 - Unspecified dementia without behavioral disturbance Status: Acute Assessment and Plan: typically oriented to self only. * Recently moved in to memory care facility approximately 5 days prior to presentation * He is oriented only currently. He remains quite drowsy. * Was felt to be more confused on presentation. This was likely ongoing for a couple days and may have been related to his recent moved to memory care facility. Suspect progression of his overall dementia contributing to current symptoms. * Family considering hospice / comfort care. they will have a family meeting tonight and we will proceed with informational hospice meeting tomorrow if they choose (2) Agitation: Code(s): R45.1 - Restlessness and agitation Status: Acute Assessment and Plan: Resolved. * Occurred early during admission, may have been related to hospitalization * he did receive Haldol for his agitation, however this was too sedating for him and was discontinued * he has not required any further anxiolytics or antipsychotics (3) Aspiration pneumonia: Code(s): J69.0 - Pneumonitis due to inhalation of food and vomit Status: Acute Assessment and Plan: CXR showed bibasilar airspace opacities consistent with pneumonia * concern for aspiration given his dysphagia * continue with Rocephin, azithromycin, and Flagyl * leukocytosis resolved. He remains afebrile. * aspiration precautions (4) Dysphagia: Code(s): R13.10 - Dysphagia, unspecified Status: Acute Assessment and Plan: Sounds to be ongoing issue. noted to have some difficulty with swallowing liquids and with his pills * Bedside swallow study and MBS performed 10/28/2020. he was somnolent during exam and recommended that MBS be terminated. ST recommendations for NPO diet at this time. * Continue gentle IV fluids while NPO * Discussion with family regarding goals of care. they do not wish to proceed with feeding tube. Meeting is a family tonight to discuss hospice care. * p.o. medications have been switched to IV (5) Left ankle pain: Code(s): M25.572 - Pain in left ankle and joints of left foot Status: Acute Assessment and Plan: Reported left ankle pain to daughter prior to admission and was reportedly tender on exam. * Daughter notes that he did have a fall and thought perhaps he injured the ankle. X-ray and CT with no evidence of fracture * Ankle CT highly suspicious for gout and he was started on colchicine. Uric acid level is within normal limits. He no longer is exhibiting any signs of pain and is NPO, therefore colchicine has been discontinued and will stop treatment for gout. * Supportive care to include Ronak wrap, ice, heat, and analgesics as needed (6) VALERIA (acute kidney injury): Code(s): N17.9 - Acute kidney failure, unspecified Status: Acute Assessment and Plan: Creatinine 1.6 at presentation. his baseline is unknown * creatinine is 1.3 today. * reviewed outside medical records with no recent labs done to establish baseline creatinine. * consider renal ultrasound if worsening renal function (7) Hypernatremia: Code(s): E87.0 - Hyperosmolality and hypernatremia Status: Acute Assessment and Plan: Resolved. Sodium 143 today. * Continue with IV fluids KCl 40 meq/D5/0.45NS * monitor daily BMP (8) Metabolic acidosi
--- NOTE | 2020-10-30 16:48 | PM.IMPN ---
Progress Note: A&P Assessment and Plan (1) Dementia: Code(s): F03.90 - Unspecified dementia without behavioral disturbance Status: Acute Assessment and Plan: typically oriented to self only. Recently moved in to memory care facility approximately 5 days prior to presentation He is oriented only currently. He remains quite drowsy. Was felt to be more confused on presentation. This was likely ongoing for a couple days and may have been related to his recent moved to memory care facility. Suspect progression of his overall dementia contributing to current symptoms. Family considering hospice / comfort care. they will have a family meeting tonight and we will proceed with informational hospice meeting tomorrow if they choose (2) Agitation: Code(s): R45.1 - Restlessness and agitation Status: Acute Assessment and Plan: Resolved. Occurred early during admission, may have been related to hospitalization he did receive Haldol for his agitation, however this was too sedating for him and was discontinued he has not required any further anxiolytics or antipsychotics (3) Aspiration pneumonia: Code(s): J69.0 - Pneumonitis due to inhalation of food and vomit Status: Acute Assessment and Plan: CXR showed bibasilar airspace opacities consistent with pneumonia concern for aspiration given his dysphagia continue with Rocephin, azithromycin, and Flagyl leukocytosis resolved. He remains afebrile. aspiration precautions (4) Dysphagia: Code(s): R13.10 - Dysphagia, unspecified Status: Acute Assessment and Plan: Sounds to be ongoing issue. noted to have some difficulty with swallowing liquids and with his pills Bedside swallow study and MBS performed 10/28/2020. he was somnolent during exam and recommended that MBS be terminated. ST recommendations for NPO diet at this time. Continue gentle IV fluids while NPO Discussion with family regarding goals of care. they do not wish to proceed with feeding tube. Meeting is a family tonight to discuss hospice care. p.o. medications have been switched to IV (5) Left ankle pain: Code(s): M25.572 - Pain in left ankle and joints of left foot Status: Acute Assessment and Plan: Reported left ankle pain to daughter prior to admission and was reportedly tender on exam. Daughter notes that he did have a fall and thought perhaps he injured the ankle. X-ray and CT with no evidence of fracture Ankle CT highly suspicious for gout and he was started on colchicine. Uric acid level is within normal limits. He no longer is exhibiting any signs of pain and is NPO, therefore colchicine has been discontinued and will stop treatment for gout. Supportive care to include Ronak wrap, ice, heat, and analgesics as needed (6) VALERIA (acute kidney injury): Code(s): N17.9 - Acute kidney failure, unspecified Status: Acute Assessment and Plan: Creatinine 1.6 at presentation. his baseline is unknown creatinine is 1.3 today. reviewed outside medical records with no recent labs done to establish baseline creatinine. consider renal ultrasound if worsening renal function (7) Hypernatremia: Code(s): E87.0 - Hyperosmolality and hypernatremia Status: Acute Assessment and Plan: Resolved. Sodium 143 today. Continue with IV fluids KCl 40 meq/D5/0.45NS monitor daily BMP (8) Metabolic acidosis: Code(s): E87.2 - Acidosis Status: Acute Assessment and Plan: normal anion gap received sodium bicarb with D5W monitor BMP Subjective Date/time seen: 10/30/20 16:48 Interval history: Date of service: 10/28/2020 Ghulam Millan is an 85-year-old male with a history of dementia, type 2 diabetes mellitus, atrial fibrillation on chronic anticoagulation, BPH, and GERD who is seen in follow-up for altered mental status. h
[2020-10-30 20:00] VITALS: PULSE 90; RESP 24; O2SAT 90
[2020-10-30 20:32] VITALS: BP 182/92; PULSE 90; RESP 24; TEMP 36.1; O2SAT 90
[2020-10-31] MEDS: metroNIDAZOLE 500 MG/ISO 100ML 500 MG/100 ML BAG 100 MG IVPB ×2 (00:33→09:08)
[2020-10-31] MEDS: KCL 40 MEQ/D5 1/2NS 1,000 ML 90 ML IV CONT (02:36)
[2020-10-31 05:14] VITALS: BP 154/100; PULSE 91; RESP 24; TEMP 36.7; O2SAT 93
[2020-10-31 05:44] LABS: Hematocrit 37.6 % (42.0-52.0); Hemoglobin 12.2 g/dL (14.0-18.0); Mean Corpuscular HGB Conc 32.4 g/dl (32-36); Mean Corpuscular Hemoglobin 28.7 pg (26-34); Mean Corpuscular Volume 88.5 fl (80-100); Mean Platelet Volume 9.6 fl (7.4-10.4); Platelet Count Result 259 k/mm3 (150-375); Red Blood Count 4.25 M/mm3 (4.6-6.20); Red Cell Distribution Width 14.5 % (11.5-14.5); White Blood Count 9.9 K/mm3 (4.5-10.0)
[2020-10-31 05:53] LABS: Anion Gap 10 mmol/L (8-16); Blood Urea Nitrogen 23 mg/dL (9-20); Calcium 8.6 mg/dL (8.4-10.2); Carbon Dioxide 18 mmol/L (22-30); Chloride 114 mmol/L (98-107); Estimated CRCL calculation 50 ml/min; Estimated Glomerular Filt Rate 58; Glucose 172 mg/dL (65-110); Potassium 3.2 mmol/L (3.4-5.0); Sodium 142 mmol/L (137-145)
[2020-10-31] MEDS: PANTOPRAZOLE SODIUM IV 40 MG VIAL IV PUSH (09:08)
[2020-10-31] MEDS: SILVERGEL (ELTA) 45 ML 1 APPLIC TOPICAL (09:09)
--- NOTE | 2020-10-31 12:58 | P.PNIM_ITS ---
Progress Note: A&P Assessment and Plan (1) Encounter for hospice care discussion: Code(s): Z71.89 - Other specified counseling Status: Acute Assessment and Plan: Patient with overall, progressive decline due to his dementia. * Family has requested stopping medications and fluids, continuing with comfort care measures. * Please see subjective portion of note for extensive details * Will allow for comfort feedings; aspiration risks discussed * Atropine drops as needed for secretions * Hospice informational meeting today at 3:00 p.m. Family considering home hospice. (2) Dementia: Code(s): F03.90 - Unspecified dementia without behavioral disturbance Status: Acute Assessment and Plan: Typically oriented to self only. * Recently moved in to memory care facility approximately 5 days prior to presentation * Was felt to be more confused on presentation. This was likely ongoing for a couple days and may have been related to his recent move to memory care facility. Suspect progression of his overall dementia contributing to current symptoms. * Hospice meeting today as discussed above (3) Agitation: Code(s): R45.1 - Restlessness and agitation Status: Acute Assessment and Plan: Resolved. * Occurred early during admission, may have been related to hospitalization/unfamiliar surroundings * he did receive Haldol for his agitation, however this was too sedating for him and was discontinued * he has not required any further anxiolytics or antipsychotics (4) Aspiration pneumonia: Code(s): J69.0 - Pneumonitis due to inhalation of food and vomit Status: Acute Assessment and Plan: CXR showed bibasilar airspace opacities consistent with pneumonia * concern for aspiration given his dysphagia * started on Rocephin, azithromycin, and Flagyl * leukocytosis resolved and remains afebrile. * discontinue antibiotics. comfort measures only at this time per family wishes (5) Dysphagia: Code(s): R13.10 - Dysphagia, unspecified Status: Acute Assessment and Plan: Sounds to be ongoing issue. Noted to have some difficulty with swallowing liquids and with his pills outpatient * Bedside swallow study and MBS performed 10/28/2020. He was somnolent during exam and recommended that MBS be terminated. ST recommendations for NPO diet * Discussion with family regarding goals of care. They do not wish to proceed with feeding tube (6) Left ankle pain: Code(s): M25.572 - Pain in left ankle and joints of left foot Status: Acute Assessment and Plan: Reported left ankle pain to daughter prior to admission and was reportedly tender on exam. * Daughter notes that he did have a fall and thought perhaps he injured the ankle. X-ray and CT with no evidence of fracture * Ankle CT highly suspicious for gout and he was started on colchicine. Uric acid level is within normal limits. He no longer is exhibiting any signs of pain and gout treatment has been discontinued * Supportive care to include Ronak wrap, ice, heat, and analgesics as needed (7) VALERIA (acute kidney injury): Code(s): N17.9 - Acute kidney failure, unspecified Status: Acute Assessment and Plan: Creatinine 1.6 at presentation. his baseline is unknown * creatinine is 1.2 today. * reviewed outside medical records with no recent labs done to establish baseline creatinine. * no need for further lab monitoring (8) Hype
--- NOTE | 2020-10-31 12:58 | PM.IMPN ---
Progress Note: A&P Assessment and Plan (1) Encounter for hospice care discussion: Code(s): Z71.89 - Other specified counseling Status: Acute Assessment and Plan: Patient with overall, progressive decline due to his dementia. Family has requested stopping medications and fluids, continuing with comfort care measures. Please see subjective portion of note for extensive details Will allow for comfort feedings; aspiration risks discussed Atropine drops as needed for secretions Hospice informational meeting today at 3:00 p.m. Family considering home hospice. (2) Dementia: Code(s): F03.90 - Unspecified dementia without behavioral disturbance Status: Acute Assessment and Plan: Typically oriented to self only. Recently moved in to memory care facility approximately 5 days prior to presentation Was felt to be more confused on presentation. This was likely ongoing for a couple days and may have been related to his recent move to memory care facility. Suspect progression of his overall dementia contributing to current symptoms. Hospice meeting today as discussed above (3) Agitation: Code(s): R45.1 - Restlessness and agitation Status: Acute Assessment and Plan: Resolved. Occurred early during admission, may have been related to hospitalization/unfamiliar surroundings he did receive Haldol for his agitation, however this was too sedating for him and was discontinued he has not required any further anxiolytics or antipsychotics (4) Aspiration pneumonia: Code(s): J69.0 - Pneumonitis due to inhalation of food and vomit Status: Acute Assessment and Plan: CXR showed bibasilar airspace opacities consistent with pneumonia concern for aspiration given his dysphagia started on Rocephin, azithromycin, and Flagyl leukocytosis resolved and remains afebrile. discontinue antibiotics. comfort measures only at this time per family wishes (5) Dysphagia: Code(s): R13.10 - Dysphagia, unspecified Status: Acute Assessment and Plan: Sounds to be ongoing issue. Noted to have some difficulty with swallowing liquids and with his pills outpatient Bedside swallow study and MBS performed 10/28/2020. He was somnolent during exam and recommended that MBS be terminated. ST recommendations for NPO diet Discussion with family regarding goals of care. They do not wish to proceed with feeding tube (6) Left ankle pain: Code(s): M25.572 - Pain in left ankle and joints of left foot Status: Acute Assessment and Plan: Reported left ankle pain to daughter prior to admission and was reportedly tender on exam. Daughter notes that he did have a fall and thought perhaps he injured the ankle. X-ray and CT with no evidence of fracture Ankle CT highly suspicious for gout and he was started on colchicine. Uric acid level is within normal limits. He no longer is exhibiting any signs of pain and gout treatment has been discontinued Supportive care to include Ronak wrap, ice, heat, and analgesics as needed (7) VALERIA (acute kidney injury): Code(s): N17.9 - Acute kidney failure, unspecified Status: Acute Assessment and Plan: Creatinine 1.6 at presentation. his baseline is unknown creatinine is 1.2 today. reviewed outside medical records with no recent labs done to establish baseline creatinine. no need for further lab monitoring (8) Hypernatremia: Code(s): E87.0 - Hyperosmolality and hypernatremia Status: Acute Assessment and Plan: Resolved. Sodium 142 today. Discontinuing IV fluids as above No need for further lab monitoring Time Spent With Patient Time with patient: Greater than 35 minutes Subjective Date/time seen: 10/31/20 12:58 Interval history: Date of service: 10/28/2020 Ghulam Millan is an 85-year-old male with a history of dementi
[2020-10-31] MEDS: SCOPOLAMINE 1.5 MG PATCH TRANSDERM (21:02)
[2020-10-31 21:45] VITALS: BP 141/98; PULSE 60; RESP 18; TEMP 36; O2SAT 93
[2020-11-01] MEDS: HALOPERIDOL LACTATE 5 MG/ML VIAL IM (00:44)
[2020-11-01 05:37] VITALS: BP 156/94; PULSE 118; RESP 20; TEMP 36.2; O2SAT 90
[2020-11-01] MEDS: SILVERGEL (ELTA) 45 ML 1 APPLIC TOPICAL (08:45)
--- NOTE | 2020-11-01 16:56 | PM.DS ---
DS: Admitting Diagnosis Admitting Diagnosis altered mental status DS: Discharge Diagnosis Discharge Diagnosis (1) Encounter for hospice care discussion: Code(s): Z71.89 - Other specified counseling Status: Acute Assessment and Plan: Patient with overall, progressive decline due to his dementia. On 10/31/20, family requested stopping medications and fluids, continuing with comfort care measures only Meeting with [facility] on 10/31/2020 during which family decided to proceed with home hospice care Atropine and scopolamine provided for secretions during hospital stay Further care per hospice. (2) Dementia: Code(s): F03.90 - Unspecified dementia without behavioral disturbance Status: Acute Assessment and Plan: Typically oriented to self only. Recently moved in to memory care facility approximately 5 days prior to presentation Was felt to be more confused on presentation. This was likely ongoing for a couple days and may have been related to his recent move to memory care facility. Suspect progression of his dementia contributing to overall failure to thrive Family ultimately opted for hospice care as noted above (3) Agitation: Code(s): R45.1 - Restlessness and agitation Status: Acute Assessment and Plan: Resolved. Occurred early during admission, may have been related to hospitalization/unfamiliar surroundings. He did receive Haldol for his agitation, however this was too sedating for him and was discontinued. He did not require any further anxiolytics or antipsychotics the duration of his hospitalization (4) Aspiration pneumonia: Code(s): J69.0 - Pneumonitis due to inhalation of food and vomit Status: Acute Assessment and Plan: CXR showed bibasilar airspace opacities consistent with pneumonia. Concern for aspiration given his dysphagia. started on IV antibiotics and made NPO, however this was discontinued when family decided to proceed with comfort care measures. (5) Dysphagia: Code(s): R13.10 - Dysphagia, unspecified Status: Acute Assessment and Plan: Had been an ongoing issue. Noted to have some difficulty with swallowing liquids and with his pills as an outpatient. Bedside swallow study and MBS performed 10/28/2020 with recommendations for NPO diet. Family did not wish to consider feeding tube. (6) Left ankle pain: Code(s): M25.572 - Pain in left ankle and joints of left foot Status: Acute Assessment and Plan: Reported left ankle pain to daughter prior to admission and was reportedly tender on inital exam. Daughter notes that he did have a fall and thought perhaps he injured the ankle. X-ray and CT with no evidence of fracture. Ankle CT highly suspicious for gout and he was started on colchicine. Uric acid level within normal limits. on each of my encounters, he did not exhibit any signs of pain. Colchicine was discontinued. (7) VALERIA (acute kidney injury): Code(s): N17.9 - Acute kidney failure, unspecified Status: Acute Assessment and Plan: Creatinine 1.6 at presentation. Baseline unknown. Creatinine did eventually normalize with IV fluids. No need for further evaluation (8) Hypernatremia: Code(s): E87.0 - Hyperosmolality and hypernatremia Status: Acute Assessment and Plan: Resolved. No need for further lab monitoring as he is on hospice. DS: Summary Hospital Course Hospital Course: Date of admission: 10/24/2020 date of discharge: 11/01/2020 Ghulam Millan is an 85-year-old male with a history of dementia, type 2 diabetes mellitus, atrial fibrillation on chronic anticoagulation, BPH, and GERD who presented to the emergency department on 10/24/2020 for evaluation of weakness and decreased responsiveness at his memory care facility. Please see H&P for further details. He was admitted to the hosp
== END 2020-11-01 13:29 | disposition hospice, home (50) | DRG 947 ==
LOC: ANHED 20:01 → ANH2MED 20:05
PROVIDERS: Nurse Practitioner Adult Health; Physician Assistant; Admitting Provider Internal Medicine; Emergency Provider Emergency Medicine; PCP Internal Medicine; Visit Provider Physician Assistant
DX: R41.82 Altered mental status, unspecified (principal); J69.0 Pneumonitis due to inhalation of food and vomit; N17.9 Acute kidney failure, unspecified; E87.0 Hyperosmolality and hypernatremia; E87.2 Acidosis; R26.89 Other abnormalities of gait and mobility; F03.90 Unspecified dementia, unspecified severity, without behavioral disturbance, psychotic disturbance, mood disturbance, and anxiety; I48.91 Unspecified atrial fibrillation; N40.0 Benign prostatic hyperplasia without lower urinary tract symptoms; K21.9 Gastro-esophageal reflux disease without esophagitis; E11.621 Type 2 diabetes mellitus with foot ulcer; L97.519 Non-pressure chronic ulcer of other part of right foot with unspecified severity; E11.42 Type 2 diabetes mellitus with diabetic polyneuropathy; M25.572 Pain in left ankle and joints of left foot; I87.8 Other specified disorders of veins; Z79.82 Long term (current) use of aspirin; T43.4X5A Adverse effect of butyrophenone and thiothixene neuroleptics, initial encounter; Y92.129 Unspecified place in nursing home as the place of occurrence of the external cause; R13.10 Dysphagia, unspecified; Z79.01 Long term (current) use of anticoagulants; R45.1 Restlessness and agitation; Z51.5 Encounter for palliative care
CPT/HCPCS: 36415; 70450; 71045; 71046; 73600; 73700; 80048; 81001; 82140; 82607; 82746; 84295; 84439; 84443; 84480; 84550; 85025; 85027; 87040; 92611; 93005; 96361; 96365; 96372; 96375; 96376; 97161; 97165; 97530; 99285; A9270; C9113; G0378; J0456; J0696; J1630; J2270; J3420; J3480; J7030; J7070